=== PATIENT | male | born 2000 | race Caucasian/White ===

== ENCOUNTER 2022-10-18 23:52 | Emergency (ER) | payer OTHER ==
[2022-10-19] MEDS ORDERED: KETOROLAC 30 MG/ML VIAL IVP STA (00:27)
[2022-10-19] MEDS ORDERED: diphenhydrAMINE INJ 50 MG/ML VIAL IVP STA (00:27)
[2022-10-19] MEDS ORDERED: METOCLOPRAMIDE 10 MG/2 ML VIAL IVP STA (00:27)
[2022-10-19] MEDS ORDERED: SODIUM CHLORIDE 0.9% 1,000 ML IV STA (00:27)
--- NOTE | 2022-10-19 01:21 | ED Physician Documentation ---
PD HPI HEADACHE - Stated complaint Stated Complaint: V/HEAD PX - Chief complaint Chief Complaint: General - History obtained from History obtained from: Patient - Additional information Additional information: Patient is a 22-year-old male with no significant prior medical history presenting for evaluation of a frontal headache that has been present since noon today. Patient denies any exertional activity at onset. It is gradually increased in intensity. He did try a dose of ibuprofen (he believes 400 mg) around 1:00 this afternoon without any significant improvement. He reports associated nausea And 2 episodes of vomiting. Patient reports having had headaches in the past. Patient reports having had a prior MRI without any acute findings. He denies fever, head injury, use of blood thinners, chest pain, difficulty breathing, abdominal pain. Review of Systems Constitutional: denies: Fever Cardiac: denies: Chest pain / pressure Respiratory: denies: Dyspnea GI: reports: Nausea. denies: Abdominal Pain Neurologic: reports: Headache. denies: Head injury PD PAST MEDICAL HISTORY - Past Medical History Past Medical History: No - Past Surgical History Past Surgical History: No - Present Medications Home Medications: Ambulatory Orders Medication Instructions Recorded Confirmed No Known Home Medications 10/19/22 10/19/22 - Allergies Allergies/Adverse Reactions: Allergies Allergy/AdvReac Type Severity Reaction Status Date / Time No Known Drug Allergies Allergy Verified 10/19/22 00:00 - Social History Does the pt smoke?: No Smoking Status: Never smoker Does the pt drink ETOH?: No Does the pt have substance abuse?: No - Immunizations Immunizations are current?: Yes - POLST Patient has POLST: No PD ED PE NORMAL - General General: Alert and oriented X 3, No acute distress, Well developed/nourished - HEENT HEENT: Atraumatic, PERRL, EOMI, Moist mucous membranes, Pharynx benign - Neck Neck: Supple, no meningeal sign - Cardiac Cardiac: RRR, No murmur - Respiratory Respiratory: No respiratory distress, Clear bilaterally - Abdomen Abdomen: Soft, Non tender - Derm Derm: Warm and dry - Neuro Neuro: Alert and oriented X 3, car scrubber 2-12 intact, No motor deficit, No sensory deficit, Normal speech, Other (Normal unassisted gait) Results - Vitals Vitals: Vital Signs - 24 hr 10/18/22 10/19/22 10/19/22 23:54 00:00 01:29 Temperature 36.4 C L Heart Rate 89 64 61 Respiratory 18 15 Rate Blood Pressure 141/78 H 135/87 H 108/67 O2 Saturation 98 97 98 Oxygen O2 Source Room air PD Medical Decision Making - ED course Complexity details: re-evaluated patient, d/w patient ED course: 0119 - Feeling better. Pain has resolved. Patient presenting for evaluation of headache that started earlier today. Does have a history of headaches. No head injury. Gradual Moe increasing in intensity. Patient is well-appearing with stable vital signs and a normal neuro exam with no signs of nuchal rigidity or meningitis. He is ambulatory ian without any issue and is able to tolerate exam lights on in room. History and exam do not suggest subarachnoid hemorrhage. Patient received IV fluids, Toradol, Reglan and Benadryl with complete resolution in his symptoms.Patient counseled on need for continued supportive care as well as [facility] He is advised on concerning symptoms to return for. Departure - Departure Disposition: 01 Home, Self Care Clinical Impression: Headache Condition: Stable Instructions: ED Cephalgia Unspecified Follow-Up: SELAM Mitchell [Provider Group] Comments: Please have close [facility]. If you develop any worsening symptoms at any time or your pain returns please consider return to the emergency department. Forms: Activity restrictions Discharge Date/Time: 10/19/22 01:29
[2022-10-19 01:40] VITALS: BP 108/67
== END 2022-10-19 01:29 | disposition home or self-care (01) ==
LOC: ED 23:52
DX: R51.9 Headache, unspecified (principal)
CPT/HCPCS: 36415; 96374; 96375; 99283; J1200; J2765